=== PATIENT | male | born 1935 | race Two or more races ===

== ENCOUNTER 2020-10-30 09:55 | Outpatient (REF) | payer OTHER, SELFPAY ==
[2020-10-30 11:13] LABS: Alanine Aminotransferase 19 U/L (0-40); Albumin Level 3.7 g/dL (3.5-5.0); Alkaline Phosphatase 100 U/L (39-117); Anion Gap 11 (12-20); Aspartate Amino Transferase 24 U/L (5-37); Bilirubin Total 1.2 mg/dL (0.0-1.0); Blood Urea Nitrogen 18 mg/dL (9-16); Carbon Dioxide 34 mmol/L (22-29); Chloride 102 mmol/L (96-108); Cholesterol 98 mg/dL; Estimated Glomerular Filt Rate > 60; Glucose Fasting 106 mg/dL (60-99); HDL Cholesterol 34 mg/dL; LDL Cholesterol Calculated 52 mg/dl; Potassium 4.2 mmol/l (3.3-5.1); Sodium 143 mmol/L (135-145); Total Protein 6.7 g/dL (6.5-8.0); Triglycerides 64 mg/dL
[2020-10-30 11:14] LABS: B Type Natriuretic Peptide 308 pg/mL (<100)
[2020-10-30 11:32] LABS: PSA,Total (Free>4and<10) 0.56 ng/mL (0.00-4.00)
== END 2020-10-30 09:56 | disposition home or self-care (01) ==
LOC: HO.LAB 09:55
PROVIDERS: PCP Internal Medicine; Visit Provider Internal Medicine
DX: E11.9 Type 2 diabetes mellitus without complications (principal); M1A.9XX0 Chronic gout, unspecified, without tophus (tophi); I50.22 Chronic systolic (congestive) heart failure; N40.1 Benign prostatic hyperplasia with lower urinary tract symptoms; Z79.01 Long term (current) use of anticoagulants; Z12.5 Encounter for screening for malignant neoplasm of prostate
CPT/HCPCS: 36415; 80053; 80061; 83880; 84153

== ENCOUNTER → 2020-11-15 12:58 | Outpatient (BNVA) | payer SELFPAY | PROVIDERS: PCP Internal Medicine; Visit Provider Internal Medicine Endocrinology, Diabetes & Metabolism ==

== ENCOUNTER → 2020-12-18 15:02 | Outpatient (BNVA) | payer OTHER, SELFPAY | PROVIDERS: PCP Internal Medicine; Visit Provider Internal Medicine Cardiovascular Disease | DX: I50.22 Chronic systolic (congestive) heart failure (principal); I48.0 Paroxysmal atrial fibrillation; Z79.899 Other long term (current) drug therapy | CPT/HCPCS: 99212 ==

== ENCOUNTER 2021-03-05 08:24 | Outpatient (REF) | payer OTHER, MEDICAID, SELFPAY ==
[2021-03-05 10:15] LABS: Alanine Aminotransferase 22 U/L (0-40); Albumin Level 3.7 g/dL (3.5-5.0); Alkaline Phosphatase 103 U/L (39-117); Anion Gap 13 (12-20); Aspartate Amino Transferase 25 U/L (5-37); Bilirubin Total 1.3 mg/dL (0.0-1.0); Blood Urea Nitrogen 18 mg/dL (9-16); Calcium 9.2 mg/dL (8.4-10.2); Carbon Dioxide 30 mmol/L (22-29); Chloride 102 mmol/L (96-108); Estimated Glomerular Filt Rate > 60; Glucose Fasting 101 mg/dL (60-99); Potassium 4.1 mmol/L (3.3-5.1); Sodium 141 mmol/L (135-145); Total Protein 6.7 g/dL (6.5-8.0); Uric Acid 8.6 mg/dL (3.4-7.0)
[2021-03-05 10:21] LABS: B Type Natriuretic Peptide 259 pg/mL (<100)
[2021-03-05 10:46] LABS: PSA,Total (Free>4and<10) 0.59 ng/mL (0.00-4.00)
== END 2021-03-05 08:25 | disposition home or self-care (01) ==
LOC: HO.LAB 08:24
PROVIDERS: Absent Provider Internal Medicine Endocrinology, Diabetes & Metabolism; PCP Internal Medicine; Referring Provider Internal Medicine Cardiovascular Disease; Visit Provider Internal Medicine
DX: Z12.5 Encounter for screening for malignant neoplasm of prostate (principal); M10.9 Gout, unspecified; N40.0 Benign prostatic hyperplasia without lower urinary tract symptoms; I50.22 Chronic systolic (congestive) heart failure; E11.3553 Type 2 diabetes mellitus with stable proliferative diabetic retinopathy, bilateral
CPT/HCPCS: 36415; 80053; 83880; 84153; 84550

== ENCOUNTER 2021-08-22 13:04 | Outpatient (REF) | payer OTHER, MEDICAID, SELFPAY | END 2021-08-22 13:05 | disposition home or self-care (01) | LOC: HO.LAB 13:04 | PROVIDERS: PCP Internal Medicine; Visit Provider Internal Medicine | DX: Z20.822 Contact with and (suspected) exposure to COVID-19 (principal) | CPT/HCPCS: C9803; U0003; U0005 ==

== ENCOUNTER 2021-11-13 09:45 | Outpatient (REF) | payer OTHER, MEDICAID, SELFPAY ==
[2021-11-13 10:03] LABS: MANUAL DIFF FLAG NO
[2021-11-13 10:50] LABS: Basophils Absolute Auto 0.1 X10*3/uL (0.0-0.2); Basophils Percent Auto 0.8 % (0-2); Eosinophils Absolute Auto 0.5 X10*3/uL (0.0-0.4); Eosinophils Percent Auto 7.4 % (0-4); Hematocrit 41.2 % (42.0-52.0); Hemoglobin 13.4 g/dl (14.0-18.0); Imm Gran Abs Auto 0.02 X10*3/uL (0.00-0.03); Imm Gran Pct Auto 0.3 % (0.0-0.4); Lymphocytes Absolute Auto 2.4 X10*3/uL (1.2-4.9); Lymphocytes Percent Auto 33.1 % (20-40); Mean Corpuscular HGB Conc 32.5 g/dl (31.0-36.0); Mean Corpuscular Hemoglobin 30.8 pg (27.0-33.0); Mean Corpuscular Volume 94.7 fL (80.0-98.0); Mean Platelet Volume 12.1 fL (9.4-12.4); Monocytes Absolute Auto 0.5 X10*3/uL (0.1-1.2); Monocytes Percent Auto 7.1 % (2-11); Neutrophils Absolute Auto 3.7 x10*3/uL (2.0-8.3); Neutrophils Percent Auto 51.3 % (45-73); Platelet Count 149 X10*3/uL (160-400); Red Blood Count 4.35 X10*6/uL (4.60-5.80); Red Cell Distribution Width 12.9 % (11.0-16.0); White Blood Count 7.2 X10*3/uL (4.8-10.8)
[2021-11-13 11:37] LABS: Alanine Aminotransferase 15 U/L (0-40); Albumin Level 3.7 g/dL (3.5-5.0); Alkaline Phosphatase 89 U/L (39-117); Anion Gap 9 (12-20); Aspartate Amino Transferase 20 U/L (5-37); Bilirubin Total 1.2 mg/dL (0.0-1.0); Blood Urea Nitrogen 18 mg/dL (9-16); Calcium 9.3 mg/dL (8.4-10.2); Carbon Dioxide 33 mmol/L (22-29); Chloride 104 mmol/L (96-108); Cholesterol 103 mg/dL; Estimated Glomerular Filt Rate 59; Glucose Fasting 99 mg/dL (60-99); HDL Cholesterol 31 mg/dL; LDL Cholesterol Calculated 57 mg/dl; Potassium 4.4 mmol/L (3.3-5.1); Sodium 142 mmol/L (135-145); Total Protein 6.7 g/dL (6.5-8.0); Triglycerides 77 mg/dL
[2021-11-18 14:16] LABS: Vitamin D 25-OH, D2 <4 ng/mL; Vitamin D 25-OH, D3 53 ng/mL; Vitamin D 25-OH, Total 53 ng/mL (30-100)
== END 2021-11-13 09:46 | disposition home or self-care (01) ==
LOC: HO.LAB 09:45
PROVIDERS: PCP Internal Medicine; Visit Provider Internal Medicine
DX: D64.9 Anemia, unspecified (principal); E66.9 Obesity, unspecified; E78.5 Hyperlipidemia, unspecified; E55.9 Vitamin D deficiency, unspecified; E11.9 Type 2 diabetes mellitus without complications
CPT/HCPCS: 36415; 80053; 80061; 82043; 82306; 85025

== ENCOUNTER 2021-12-23 15:00 | Outpatient (REF) | payer OTHER, MEDICAID, SELFPAY ==
[2021-12-23 16:04] LABS: MANUAL DIFF FLAG NO
[2021-12-23 16:24] LABS: Basophils Percent Auto 0.5 % (0-2); Eosinophils Absolute Auto 0.5 X10*3/uL (0.0-0.4); Eosinophils Percent Auto 6.4 % (0-4); Hematocrit 42.8 % (42.0-52.0); Hemoglobin 13.4 g/dl (14.0-18.0); Imm Gran Abs Auto 0.02 X10*3/uL (0.00-0.03); Imm Gran Pct Auto 0.3 % (0.0-0.4); Lymphocytes Absolute Auto 2.2 X10*3/uL (1.2-4.9); Lymphocytes Percent Auto 27.6 % (20-40); Mean Corpuscular HGB Conc 31.3 g/dl (31.0-36.0); Mean Corpuscular Hemoglobin 29.8 pg (27.0-33.0); Mean Corpuscular Volume 95.1 fL (80.0-98.0); Mean Platelet Volume 11.8 fL (9.4-12.4); Monocytes Absolute Auto 0.5 X10*3/uL (0.1-1.2); Monocytes Percent Auto 6.7 % (2-11); Neutrophils Absolute Auto 4.6 x10*3/uL (2.0-8.3); Neutrophils Percent Auto 58.5 % (45-73); Platelet Count 161 X10*3/uL (160-400); Red Cell Distribution Width 12.8 % (11.0-16.0); White Blood Count 7.8 X10*3/uL (4.8-10.8)
[2021-12-23 16:50] LABS: Anion Gap 11 (12-20); Blood Urea Nitrogen 19 mg/dL (9-16); Calcium 9.2 mg/dL (8.4-10.2); Carbon Dioxide 35 mmol/L (22-29); Chloride 103 mmol/L (96-108); Estimated Glomerular Filt Rate 56; Glucose Random 98 mg/dL (60-115); Potassium 4.2 mmol/L (3.3-5.1); Sodium 145 mmol/L (135-145); Uric Acid 8.9 mg/dL (3.4-7.0)
[2021-12-23 16:57] LABS: B Type Natriuretic Peptide 284 pg/mL (<100)
[2021-12-27 13:46] LABS: Vitamin D 25-OH, D2 <4 ng/mL; Vitamin D 25-OH, D3 44 ng/mL; Vitamin D 25-OH, Total 44 ng/mL (30-100)
== END 2021-12-23 15:01 | disposition home or self-care (01) ==
LOC: HO.LAB 15:00
PROVIDERS: PCP Internal Medicine; Referring Provider Internal Medicine; Visit Provider Internal Medicine Cardiovascular Disease
DX: I50.22 Chronic systolic (congestive) heart failure (principal); I48.0 Paroxysmal atrial fibrillation; E55.9 Vitamin D deficiency, unspecified; D64.9 Anemia, unspecified; M10.9 Gout, unspecified
CPT/HCPCS: 36415; 80048; 82306; 83880; 84550; 85025; 93005; 99212

== ENCOUNTER → 2022-03-13 14:47 | Outpatient (REF) | payer OTHER, MEDICAID, SELFPAY ==
--- NOTE | 2022-03-13 14:52 | CA_ITS ---
Transthoracic Echocardiogram Patient (Last, First, Middle): Walt Allen R Gender: Male Date of : 1935 Age: 87 Procedure Date: 03/13/2022 Procedure Type: Transthoracic Echocardiogram Location: OP Height: 172.72 cm Weight: 105.69 kg BSA: 2.18 m2 Heart Rate: 60 bpm BP: 132 / 76 mmHg Cartography Teacher: NAVID Referring MD: Robbie Kemp MD Lawnmower Mechanic: Robbie Kemp MD Symptoms: I50.22 - Chronic systolic (congestive) heart failure Study Quality: Fair ECG Rhythm: Atrial Fibrillation Conclusions: - 1. Normal LV systolic function 2. Moderate right atrial enlargement 3. Normal cardiac valvular Doppler 4. Normal RV systolic pressure 5. No gross pericardial effusion Findings Left Ventricle Normal left ventricular size, thickness, and systolic function. The visually estimated ejection fraction is between 55-60%. Diastolic function is normal for age. Right Ventricle Mildly increased right ventricular cavity size. Atria The left atrium is likely dilated. Interatrial shunt cannot be excluded. The right atrium is moderately dilated. Aortic Valve There is mild calcification of the aortic valve. There is no aortic valve stenosis. There is no aortic valve regurgitation. Mitral Valve Likely normal mitral valve structure and function. There is trace mitral valve regurgitation. There is no mitral valve stenosis. Pulmonic Valve The pulmonic valve was not well visualized. Tricuspid Valve Likely normal tricuspid valve structure and function. There is mild tricuspid valve regurgitation. Normal right atrial pressure. There is no evidence of pulmonary hypertension. Great Vessels All visible segments of the aorta are normal in size. The pulmonary artery was not well visualized. Venous The inferior vena cava is normal in size and collapses greater than 50% with inspiration. Pericardium/Pleural There is no evidence of pericardial effusion. Prior Study Comparison No significant change compared to prior study dated: 05/11/2019. Measurements 2D Linear Measurements IVSd: 1.05 0.6-0.9/0.6-1.0 cm LVIDd: 5.00 3.9-5.3/4.2-5.9 cm LVIDd Index: 2.29 2.4-3.2/2.2-3.1 cm/m2 LVIDs: 3.67 2.0-3.6 cm LVPWd: 0.72 0.7-1.1 cm LA Diam: 4.40 2.7-3.8/3.0-4.0 cm LAIDs Index: 2.02 1.5-2.3 cm/m2 LV Mass: 192.70 67-162/88-224 g LV Mass Index: 88.39 43-95/49-115 g/m2 LVOT Diam: 2.20 3.0+(-)1.3 cm Mitral Valve MV Pk E: 0.70 Aortic Valve AoV Pk Jeff: 0.78 AoV Mn Jeff: 0.55 AoV VTI: 0.16 AoV Pk Grad: 2.00 Aov Mn Grad: 1.00 MARY Cont.VTI: 3.14 LVOT LVOT Pk Jeff: 0.63 LVOT Mn Jeff: 0.44 LVOT VTI: 0.13 LVOT Pk Grad: 2.00 LVOT Mn Grad: 1.00 LVOT Diam: 2.20 LVOT Area: 3.80 Diastolic Function MV Pk E: 0.70 Tricuspid Valve TR Pk Jeff: 2.38 TR Pk Grad: 23.00 RA Press: 15.00 RVSP: 38.00 Great Vessels Aorta Sinus of Valsalva: 2.86 2.0-3.[address] [place]: 2.71 1.7-3.4 cm Ao Asc: 3.10 2.1-3.4 cm Pulmonary Valve PV Pk Jeff: 0.62 Peak PV Grad: 2.00 Updated in Other Vendor System with Status of Final Robbie Kemp MD electronically signed on 03/14/2022 3:02:09 PM with status of Final
== END ==
LOC: HO.CARD 14:47
PROVIDERS: PCP Internal Medicine; Visit Provider Internal Medicine Cardiovascular Disease
DX: I50.22 Chronic systolic (congestive) heart failure (principal)
CPT/HCPCS: 93306

== ENCOUNTER → 2022-03-27 14:32 | Outpatient (BNVA) | payer OTHER, MEDICAID, SELFPAY | PROVIDERS: PCP Internal Medicine; Referring Provider Internal Medicine; Visit Provider Internal Medicine Cardiovascular Disease | DX: I50.22 Chronic systolic (congestive) heart failure (principal); I48.0 Paroxysmal atrial fibrillation; Z79.01 Long term (current) use of anticoagulants; Z79.899 Other long term (current) drug therapy | CPT/HCPCS: 99212 ==

== ENCOUNTER 2022-04-01 08:57 | Outpatient (REF) | payer OTHER, MEDICAID, SELFPAY ==
[2022-04-01 10:44] LABS: B Type Natriuretic Peptide 252 pg/mL (<100)
[2022-04-01 10:49] LABS: Creatinine Urine 167.48 mg/dL; Microalbum/Creatinine Ratio Ur 8.3 ug/mg cr
[2022-04-01 11:06] LABS: Alanine Aminotransferase 18 U/L (0-40); Albumin Level 3.7 g/dL (3.5-5.0); Alkaline Phosphatase 96 U/L (39-117); Anion Gap 11 (12-20); Aspartate Amino Transferase 21 U/L (5-37); Bilirubin Total 1.3 mg/dL (0.0-1.0); Blood Urea Nitrogen 20 mg/dL (9-16); Calcium 8.9 mg/dL (8.4-10.2); Carbon Dioxide 30 mmol/L (22-29); Chloride 105 mmol/L (96-108); Cholesterol 96 mg/dL; Estimated Glomerular Filt Rate 57; Glucose Fasting 99 mg/dL (60-99); HDL Cholesterol 33 mg/dL; LDL Cholesterol Calculated 52 mg/dl; Potassium 4.3 mmol/L (3.3-5.1); Sodium 142 mmol/L (135-145); Total Protein 6.7 g/dL (6.5-8.0); Triglycerides 58 mg/dL
== END 2022-04-01 08:58 | disposition home or self-care (01) ==
LOC: HO.LAB 08:57
PROVIDERS: PCP Internal Medicine; Visit Provider Internal Medicine
DX: I50.22 Chronic systolic (congestive) heart failure (principal); E78.5 Hyperlipidemia, unspecified; E11.9 Type 2 diabetes mellitus without complications
CPT/HCPCS: 36415; 80053; 80061; 82043; 83880

== ENCOUNTER 2022-08-05 09:00 | Outpatient (REF) | payer OTHER, MEDICAID, SELFPAY ==
[2022-08-05 09:48] LABS: Cholesterol 103 mg/dL; HDL Cholesterol 34 mg/dL; LDL Cholesterol Calculated 54 mg/dl; Triglycerides 76 mg/dL
[2022-08-05 09:57] LABS: Creatinine Urine 197.11 mg/dL; Microalbum/Creatinine Ratio Ur 10.1 ug/mg cr
[2022-08-05 10:09] LABS: Vitamin D 25-OH Total 55.3 ng/mL (>30)
[2022-08-06 12:14] LABS: NT-proBNP 959 pg/mL
== END 2022-08-05 09:01 | disposition home or self-care (01) ==
LOC: HO.LAB 09:00
PROVIDERS: PCP Internal Medicine; Visit Provider Internal Medicine
DX: I50.22 Chronic systolic (congestive) heart failure (principal); E78.5 Hyperlipidemia, unspecified; E11.9 Type 2 diabetes mellitus without complications; E55.9 Vitamin D deficiency, unspecified
CPT/HCPCS: 36415; 80061; 82043; 82306; 83880

== ENCOUNTER 2022-08-28 12:13 | Emergency (ER) | payer OTHER, MEDICAID, SELFPAY ==
--- NOTE | ~2022-08-28 | US_ITS ---
EXAMINATION: US SCROTUM CLINICAL INFORMATION: Bilateral testicular pain and swelling. COMPARISON: None TECHNIQUE: A sonogram of the scrotum was performed assessing delgado-scale appearance and color Doppler flow. Spectral Doppler analysis of the arterial and venous flow were performed in the testes bilaterally. FINDINGS: RIGHT: Right testicle measures 4.5 x 2.7 x 2.6 cm, volume 16.2 mL. No focal testicular parenchymal lesions are visualized except for 2 punctate calcifications. Spectral Doppler analysis of the arterial and venous flow is normal in the right testis. Right epididymis is not visualized due to large hydrocele. There is moderate right hydrocele with echogenic floating debris. There is no varicocele seen. LEFT: Left testicle measures 4.9 x 2.4 x 2.3 cm, volume 14.2 mL. No focal testicular parenchymal lesions are visualized. Spectral Doppler analysis of the arterial and venous flow is normal in the left testis. Left epididymis is not utilized due to large hydrocele there is a large left hydrocele with a small echogenic scrotal pole measuring 0.3 x 0.4 x 0.4 cm. There is no scrotal wall thickening. US/US scrotum IMPRESSION: Bilateral large hydroceles with echogenic floating debris in the right hydrocele. 2 punctate calcifications in the right testes but otherwise both testes are unremarkable with normal vascular flow. Incidental finding of a left scrotal christian. Bilateral epididymides nonvisualized likely due to large hydroceles.
--- NOTE | ~2022-08-28 | US_ITS ---
EXAMINATION: US SCROTUM CLINICAL INFORMATION: Bilateral testicular pain and swelling. COMPARISON: None TECHNIQUE: A sonogram of the scrotum was performed assessing delgado-scale appearance and color Doppler flow. Spectral Doppler analysis of the arterial and venous flow were performed in the testes bilaterally. FINDINGS: RIGHT: Right testicle measures 4.5 x 2.7 x 2.6 cm, volume 16.2 mL. No focal testicular parenchymal lesions are visualized except for 2 punctate calcifications. Spectral Doppler analysis of the arterial and venous flow is normal in the right testis. Right epididymis is not visualized due to large hydrocele. There is moderate right hydrocele with echogenic floating debris. There is no varicocele seen. LEFT: Left testicle measures 4.9 x 2.4 x 2.3 cm, volume 14.2 mL. No focal testicular parenchymal lesions are visualized. Spectral Doppler analysis of the arterial and venous flow is normal in the left testis. Left epididymis is not utilized due to large hydrocele there is a large left hydrocele with a small echogenic scrotal pole measuring 0.3 x 0.4 x 0.4 cm. There is no scrotal wall thickening. US/US scrotum doppler IMPRESSION: Bilateral large hydroceles with echogenic floating debris in the right hydrocele. 2 punctate calcifications in the right testes but otherwise both testes are unremarkable with normal vascular flow. Incidental finding of a left scrotal christian. Bilateral epididymides nonvisualized likely due to large hydroceles.
[2022-08-28 12:32] VITALS: BP 128/54; PULSE 84; RESP 18; TEMP 36.9; O2SAT 98; BMI 37.5
--- NOTE | 2022-08-28 12:36 | ED.GENADULT ---
HPI - General Adult General Chief complaint: General Medical Stated complaint: testicle issue Time Seen by Provider: 08/28/22 16:21 Related Data Home Medications Medication Instructions Recorded Confirmed lancets 31 gauge #100 ea 11/01/20 08/05/22 furosemide 40 mg tablet 80 mg PO DAILY 03/27/22 08/05/22 Previous Rx's Medication Instructions Recorded blood-glucose meter (OneTouch #1 ea 11/28/20 Ultra2 Meter) potassium chloride 10 mEq 10 meq PO DAILY 90 days #90 tabs 09/27/21 tablet,extended release alcohol swabs 1 pad topical .once a day 100 days 11/20/21 #100 ea blood sugar diagnostic #100 ea 11/20/21 lancets (OneTouch UltraSoft #100 ea 11/20/21 Lancets) diabetic shoe inserts #1 ea 04/01/22 diabetic shoes #1 ea 04/01/22 colchicine 0.6 mg tablet 0.6 mg PO BID PRN pain #60 caps 04/21/22 rivaroxaban 20 mg tablet (Xarelto) 20 mg PO DAILY #90 caps 05/20/22 terazosin 10 mg capsule 10 mg PO DAILY #90 caps 05/20/22 sitagliptin 50 mg tablet (Januvia) 50 mg PO DAILY #30 tabs 05/27/22 cefdinir 300 mg capsule 300 mg PO BID 7 days #14 caps 06/21/22 metoprolol tartrate 100 mg tablet 100 mg PO BID #60 caps 07/18/22 ProAir HFA 90 mcg/actuation 2 puff inhalation Q6H PRN 08/05/22 aerosol inhaler (albuterol sulfate) shortness of breath or wheezing 30 days #8.5 grams fluticasone propionate 50 1 spray intranasal DAILY 30 days 08/05/22 mcg/actuation nasal #16 grams spray,suspension metformin 500 mg tablet,extended 500 mg PO BID 90 days #180 tabs 08/14/22 release 24 hr Allergies Allergy/AdvReac Type Severity Reaction Status Date / Time fluticasone [From Flonase] Allergy Intermediate Inadequate Verified 08/05/22 14:45 response linagliptin [Tradjenta] Allergy Intermediate anaphylaxis Verified 08/05/22 14:45 oxycodone Allergy Intermediate itch/irrita Verified 08/05/22 14:45 tion warfarin [Coumadin] Allergy Intermediate hemarthrosi Verified 08/05/22 14:45 s ipartropium bromide nasal Allergy Intermediate allergic Uncoded 08/05/22 14:45 spra conjunctivitis PMFSH Past Medical History Medical History Atrial fibrillation BPH (benign prostatic hyperplasia) CHF (congestive heart failure) Current use of [facility] anticoagulation Diabetes mellitus Diabetic polyneuropathy associated with type 2 diabetes mellitus Foot pain Gout Hearing loss 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 Mother No problems noted. Father Medical history unknown Mother No problems noted. Brother Asthma Sister Leukemia Diabetes Social History Social History Housing: Apartment Alcohol intake: never Patient Tobacco Use Status: Never used Tobacco e-Cigarette/Vaping Use: Never Used Second Hand Smoke Exposure: No Advance Directives: No Advance Directives Information Provided: Yes service: No Current occupational status: retired Cognitive needs: Yes Hearing needs: No Vision needs: Yes Physical Exam ED Vital Signs: Vital Signs - 24 hr 08/28/22 12:32 Temperature 98.5 F Pulse Rate 84 Respiratory Rate 18 Blood Pressure 128/54 L Pulse Oximetry 98 Oxygen Delivery Method Room Air BMI result Body Mass Index 37.5 Course Course Course Narrative: RME--87-year-old male [place]an-speaking with a past medical history BPH, AFib, CHF, diabetes presenting to the ED complaining of bilateral testicular pain /swelling x 10 years, worsened last night. Admits to similar symptoms in the past. Denies known trauma, dysuria/hematuria, flank pain UA and scrotal ultrasound ordered in triage Medical Decision Making Lab Data Labs: Lab Results 08/28/22 Range/Units 17:02 Urine Color Yellow Urine Appearance Clear Urine pH 7.0 (5.0-9.0) Ur Specific [place] 1.015 (1.005-1.025) Urine Protein Negative (Neg-Trace) mg/dL Urine Glucose (UA) Negative (Negative) mg/dL Urine Ketones Negative (Negative) mg/dL Urine Blood Negative (Negative) Urine Nitrite Negative (Negative) Ur Leukocyte Esterase Negative (Negative) Discharge Plan Discharge Clinical Impression: Swelling of testicle, Pain in both testicles, Hydrocele Patient Disposition: Home, Self-Care Instructions: Testicle Pain (ED), Scrotal Pain (ED) Additional Instructions: Take your medications as prescribed. If you were prescribed antibiotics today, it is important that you take your medication to their entirety, do not skip any doses, do not finish them early. Follow-up with your primary care provider this week. Follow up with urology as soon as possible call to schedule an appointment tomorrow. Return to the emergency department with new or worsening symptoms. Change in quality of pain, discoloration, fevers, chills, nausea, vomiting, worsening pain, penile discharge In case of emergency call 911 Elevate the scrotum when possible. You can take ibuprofen every 6 hours tylenol every 4 hours as needed for pain or discomfort. US/US scrotum FINDINGS: RIGHT: Right testicle measures 4.5 x 2.7 x 2.6 cm, volume 16.2 mL. No focal testicular parenchymal lesions are visualized except for 2 punctate calcifications. Spectral Doppler analysis of the arterial and venous flow is normal in the right testis. Right epididymis is not visualized due to large hydrocele. There is moderate right hydrocele with echogenic floating debris. There is no varicocele seen. LEFT: Left testicle measures 4.9 x 2.4 x 2.3 cm, volume 14.2 mL. No focal testicular parenchymal lesions are visualized. Spectral Doppler analysis of the arterial and venous flow is normal in the left testis. Left epididymis is not utilized due to large hydrocele there is a large left hydrocele with a small echogenic scrotal pole measuring 0.3 x 0.4 x 0.4 cm. There is no scrotal wall thickening. IMPRESSION: Bilateral large hydroceles with echogenic floating debris in the right hydrocele. ? 2 punctate calcifications in the right testes but otherwise both testes are unremarkable with normal vascular flow. ? Incidental finding of a left scrotal christian. ? Bilateral epididymides nonvisualized likely due to large hydroceles. Prescriptions: No Action (DME) blood-glucose meter [OneTouch Ultra2 Meter] [facility] [place] Rx Instructions .ROUTE .MEDSUPPLY Qty: 1 0RF Rx Instructions: As directed potassium chloride 10 mEq tablet extended release 10 meq PO DAILY 90 Days Qty: 90 3RF colchicine 0.6 mg tablet 0.6 mg PO BID PRN (Reason: pain) Qty: 60 4RF terazosin 10 mg capsule 10 mg PO DAILY Qty: 90 2RF Xarelto 20 mg tablet 20 mg PO DAILY Qty: 90 1RF Januvia 50 mg tablet 50 mg PO DAILY Qty: 30 6RF metoprolol tartrate 100 mg tablet 100 mg PO BID Qty: 60 6RF metformin 500 mg tablet extended release 24 hr 500 mg PO BID 90 Days Qty: 180 2RF flu vacc [id number] 6mos up(PF) 60 mcg (15 mcg x 4)/0.5 mL syringe 0.5 ml IM ONCE Qty: 0.5 0RF (DME) Ultra Thin [place] 31 [place] [facility] [place] Rx Instructions .ROUTE .MEDSUPPLY Qty: 100 Rx Instructions: As directed (DME) OneTouch Ultra Blue Test Strip Strip See Rx Instructions .ROUTE .MEDSUPPLY Qty: 100 2RF Rx Instructions: Use 1 test strip once a day (DME) lancets [OneTouch UltraSoft Lancets] [facility] [place] See Rx Instructions .ROUTE .MEDSUPPLY Qty: 100 2RF Rx Instructions: Use 1 lancet once a day alcohol swabs Pads, Medicated 1 pad topical .once a day 100 Days Qty: 100 2RF (DME) diabetic shoes 12 W See Rx Instructions .Route .MEDSUPPLY Qty: 1 1RF Rx Instructions: As directed (DME) diabetic shoe inserts 3 pairs See Rx Instructions .Route .MEDSUPPLY Qty: 1 6RF Rx Instructions: As directed albuterol sulfate [ProAir HFA] 90 mcg/actuation HFA aerosol inhaler 2 puff inhalation Q6H PRN (Reason: shortness of breath or wheezing) 30 Days Qty: 8.5 1RF fluticasone propionate 50 mcg/actuation spray,suspension 1 spray intranasal DAILY 30 Days Qty: 16 1RF cefdinir 300 mg capsule 300 mg PO BID 7 Days Qty: 14 0RF furosemide 40 mg tablet 80 mg PO DAILY Referrals: [facility] [place] [facility] [Provider Group] - 1 day Pushpa Mallory MD [Primary Care Provider] - 2 days Interventions: ED Discharge Assessment Last Done: 08/28/22 17:46 Discharge Date/Time: 08/28/22 17:46
--- NOTE | 2022-08-28 16:32 | ED_ITS ---
HPI - General Adult General Chief complaint: General Medical Stated complaint: testicle issue Time Seen by Provider: 08/28/22 16:21 Source: patient Mode of arrival: ambulatory Limitations: no limitations History of Present Illness HPI narrative: 87-year-old male past medical history significant for atrial fibrillation on rivaroxaban, depression, diabetes, CHF, presenting to the emergency department with complaints of testicular discomfort x1 week and testicular swelling times 10 years. Patient reports that recently he has noted a dull aching pain in bilateral testicles, worse at night. He tells me that this is never happened to him before. He reports that he was told once that he had a small cyst in his testicle however he was not sure which side. He tells me his scrotum has been appearing larger and larger over the course of the past few months. Vague complaints of dysuria. Denies urinary frequency, urgency, chest pain, shortness of breath, fevers, chills, back pain, weakness, headache, vision changes. Currently not followed by urology. Related Data Home Medications Medication Instructions Recorded Confirmed lancets 31 gauge #100 ea 11/01/20 08/05/22 furosemide 40 mg tablet 80 mg PO DAILY 03/27/22 08/05/22 Previous Rx's Medication Instructions Recorded blood-glucose meter (OneTouch #1 ea 11/28/20 Ultra2 Meter) potassium chloride 10 mEq 10 meq PO DAILY 90 days #90 tabs 09/27/21 tablet,extended release alcohol swabs 1 pad topical .once a day 100 days 11/20/21 #100 ea blood sugar diagnostic #100 ea 11/20/21 lancets (OneTouch UltraSoft #100 ea 11/20/21 Lancets) diabetic shoe inserts #1 ea 04/01/22 diabetic shoes #1 ea 04/01/22 colchicine 0.6 mg tablet 0.6 mg PO BID PRN pain #60 caps 04/21/22 rivaroxaban 20 mg tablet (Xarelto) 20 mg PO DAILY #90 caps 05/20/22 terazosin 10 mg capsule 10 mg PO DAILY #90 caps 05/20/22 sitagliptin 50 mg tablet (Januvia) 50 mg PO DAILY #30 tabs 05/27/22 cefdinir 300 mg capsule 300 mg PO BID 7 days #14 caps 06/21/22 metoprolol tartrate 100 mg tablet 100 mg PO BID #60 caps 07/18/22 ProAir HFA 90 mcg/actuation 2 puff inhalation Q6H PRN 08/05/22 aerosol inhaler (albuterol sulfate) shortness of breath or wheezing 30 days #8.5 grams fluticasone propionate 50 1 spray intranasal DAILY 30 days 08/05/22 mcg/actuation nasal #16 grams spray,suspension metformin 500 mg tablet,extended 500 mg PO BID 90 days #180 tabs 08/14/22 release 24 hr Allergies Allergy/AdvReac Type Severity Reaction Status Date / Time fluticasone [From Flonase] Allergy Intermediate Inadequate Verified 08/05/22 14:45 response linagliptin [Tradjenta] Allergy Intermediate anaphylaxis Verified 08/05/22 14:45 oxycodone Allergy Intermediate itch/irrita Verified 08/05/22 14:45 tion warfarin [Coumadin] Allergy Intermediate hemarthrosi Verified 08/05/22 14:45 s ipartropium bromide nasal Allergy Intermediate allergic Uncoded 08/05/22 14:45 spra conjunctivitis Review of Systems Review of Systems: Constitutional : No Weight loss, No Fever, No Chills, No Fatigue, No Malaise ENT/Mouth : No sore throat, No Rhinorrhea Eyes: No Eye Pain, No Swelling, No Redness Cardiovascular : No Chest Pain, No SOB, No Dyspnea on Exertion, No Orthopnea, No Edema, No Palpitations Respiratory : No Cough, No Sputum, No Wheezing Gastrointestinal : No Nausea, No Vomiting, No Diarrhea, No Constipation, No abdominal Pain, No Hematochezia, No Melena Genitourinary : No Dysuria, No Urinary Frequency, No Hematuria, + scrotal pain & swelling Musculoskeletal : No joint pain, No Myalgias, No Joint Swelling Skin : No Skin Lesions, No rash Neuro : No Weakness, No Numbness, No Dizziness, No Headache Psych : No Anxiety/Panic, No Depression All other systems reviewed and are negative Yes all other systems are reviewed and are negative REPLACED BY [facility] Past Medical History Attestation statement: The following information was validated with the patient. 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 Mother No problems noted. Father Medical history unknown Mother No problems noted. Brother Asthma Sister Leukemia Diabetes Social History Social History Housing: Apartment Alcohol intake: never Patient Tobacco Use Status: Never used Tobacco e-Cigarette/Vaping Use: Never Used Second Hand Smoke Exposure: No Advance Directives: No Advance Directives Information Provided: Yes service: No Current occupational status: retired Cognitive needs: Yes Hearing needs: No Vision needs: Yes Physical Exam ED Vital Signs: Vital Signs - 24 hr 08/28/22 12:32 Temperature 98.5 F Pulse Rate 84 Respiratory Rate 18 Blood Pressure 128/54 L Pulse Oximetry 98 Oxygen Delivery Method Room Air BMI result Body Mass Index 37.5 vss Appearance: Alert.? Oriented X3.? No acute distress.? Head: Normocephalic, atraumatic, no step-offs or deformities Eyes: Pupils equal, round and reactive to light.? Neck: Normal inspection.? Neck supple.? CVS: Normal heart rate and rhythm.? Pulses normal.? Respiratory: No respiratory distress.? Breath sounds normal.? Abdomen: Soft and nontender.? Skin: Skin warm and dry.? Normal skin color.? Normal skin turgor.? Sensative exam: slight tenderness to palpation b/l, swollen testicles b/l. No lesions lumps or masses. No penile dc. No discoloration. Normal external male genitalia. No erythema or calor Extremities: No lower extremity edema.? No calf ttp. 5/5 strength to bilateral upper and lower extremities Neuro: Oriented X 3.? No motor deficit.? No sensory deficit. CN 2-12 intact Course Reevaluation(s) Reevaluation #1: Bilateral large hydroceles with echogenic fluid and debris in the right hydrocele. Small punctate calcifications in the right testes that otherwise testes are unremarkable with normal vascular flow therefore there for unlikely to testicular torsion. Patient's symptoms most likely from progressive swelling of of hydroceles, we will have him follow-up with urology. Urine pending Time: 16:54 Reevaluation #2: . Urine unremarkable. Plan is to discharge patient home with prompt PCP follow-up, as well as follow-up with Urology. We educated on worrisome signs insist symptoms and when to return to the emergency department and they were outlined on his discharge papers. Patient verbalized his understanding is comfortable with the discharge plan. Comfortable discharge. Time: 17:33 Medical Decision Making MDM Narrative Medical decision making narrative: 1635 87 year old male presents w/ testicular pain X a week and swelling X 10 years also some associated dysuria. No nausea, vomiting, trauma. PE significant for slight tenderness to palpation b/l, swollen testicles b/l. No lesions lumps or masses. No penile dc. No discoloration. Normal external male genitalia. No erythema or calor Likely hydrocele, or balanitits. Unlikley fourniers gangrene, torsion. Will rule out UTI. Plan- urine, US Medical Records Medical records reviewed: Yes I reviewed the patient's medical records. Lab Data Lab results reviewed: Yes I reviewed the patient's lab results. Labs: Lab Results 08/28/22 Range/Units 17:02 Urine Color Yellow Urine Appearance Clear Urine pH 7.0 (5.0-9.0) Ur Specific [place] 1.015 (1.005-1.025) Urine Protein Negative (Neg-Trace) mg/dL Urine Glucose (UA) Negative (Negative) mg/dL Urine Ketones Negative (Negative) mg/dL Urine Blood Negative (Negative) Urine Nitrite Negative (Negative) Ur Leukocyte Esterase Negative (Negative) Critical Care Time Critical Care Time Critical Care Time: No Discharge Plan Discharge Clinical Impression: Swelling of testicle, Pain in both testicles, Hydrocele Patient Disposition: Home, Self-Care Instructions: Testicle Pain (ED), Scrotal Pain (ED) Additional Instructions: Take your medications as prescribed. If you were prescribed antibiotics today, it is important that you take your medication to their entirety, do not skip any doses, do not finish them early. Follow-up with your primary care provider this week. Follow up with urology as soon as possible call to schedule an appointment tomorrow. Return to the emergency department with new or worsening symptoms. Change in quality of pain, discoloration, fevers, chills, nausea, vomiting, worsening pain, penile discharge In case of emergency call 911 Elevate the scrotum when possible. You can take ibuprofen every 6 hours tylenol every 4 hours as needed for pain or discomfort. US/US scrotum FINDINGS: RIGHT: Right testicle measures 4.5 x 2.7 x 2.6 cm, volume 16.2 mL. No focal testicular parenchymal lesions are visualized except for 2 punctate calcifications. Spectral Doppler analysis of the arterial and venous flow is normal in the right testis. Right epididymis is not visualized due to large hydrocele. There is moderate right hydrocele with echogenic floating debris. There is no varicocele seen. LEFT: Left testicle measures 4.9 x 2.4 x 2.3 cm, volume 14.2 mL. No focal testicular parenchymal lesions are visualized. Spectral Doppler analysis of the arterial and venous flow is normal in the left testis. Left epididymis is not utilized due to large hydrocele there is a large left hydrocele with a small echogenic scrotal pole measuring 0.3 x 0.4 x 0.4 cm. There is no scrotal wall thickening. IMPRESSION: Bilateral large hydroceles with echogenic floating debris in the right hydrocele. ? 2 punctate calcifications in the right testes but otherwise both testes are unremarkable with normal vascular flow. ? Incidental finding of a left scrotal christian. ? Bilateral epididymides nonvisualized likely due to large hydroceles. Prescriptions: No Action (DME) blood-glucose meter [OneTouch Ultra2 Meter] Misc See Rx Instructions .ROUTE .MEDSUPPLY Qty: 1 0RF Rx Instructions: As directed potassium chloride 10 mEq tablet extended release 10 meq PO DAILY 90 Days Qty: 90 3RF colchicine 0.6 mg tablet 0.6 mg PO BID PRN (Reason: pain) Qty: 60 4RF terazosin 10 mg capsule 10 mg PO DAILY Qty: 90 2RF Xarelto 20 mg tablet 20 mg PO DAILY Qty: 90 1RF Januvia 50 mg tablet 50 mg PO DAILY Qty: 30 6RF metoprolol tartrate 100 mg tablet 100 mg PO BID Qty: 60 6RF metformin 500 mg tablet extended release 24 hr 500 mg PO BID 90 Days Qty: 180 2RF flu vacc [id number] 6mos up(PF) 60 mcg (15 mcg x 4)/0.5 mL syringe 0.5 ml IM ONCE Qty: 0.5 0RF (DME) Ultra Thin Lancets 31 gauge misc See Rx Instructions .ROUTE .MEDSUPPLY Qty: 100 Rx Instructions: As directed (DME) OneTouch Ultra Blue Test Strip Strip See Rx Instructions .ROUTE .MEDSUPPLY Qty: 100 2RF Rx Instructions: Use 1 test strip once a day (DME) lancets [OneTouch UltraSoft Lancets] Misc See Rx Instructions .ROUTE .MEDSUPPLY Qty: 100 2RF Rx Instructions: Use 1 lancet once a day alcohol swabs Pads, Medicated 1 pad topical .once a day 100 Days Qty: 100 2RF (DME) diabetic shoes 12 W See Rx Instructions .Route .MEDSUPPLY Qty: 1 1RF Rx Instructions: As directed (DME) diabetic shoe inserts 3 pairs See Rx Instructions .Route .MEDSUPPLY Qty: 1 6RF Rx Instructions: As directed albuterol sulfate [ProAir HFA] 90 mcg/actuation HFA aerosol inhaler 2 puff inhalation Q6H PRN (Reason: shortness of breath or wheezing) 30 Days Qty: 8.5 1RF fluticasone propionate 50 mcg/actuation spray,suspension 1 spray intranasal DAILY 30 Days Qty: 16 1RF cefdinir 300 mg capsule 300 mg PO BID 7 Days Qty: 14 0RF furosemide 40 mg tablet 80 mg PO DAILY Referrals: [facility] [place] [facility] [place]Provider Group] - 1 day Pushpa Mallory MD [Primary Care Provider] - 2 days
[2022-08-28 17:13] LABS: Appearance Urine Clear; Color Urine Yellow; Glucose Urine UA Negative (Negative); Leukocyte Esterase Urine Negative (Negative); Nitrite Urine Negative (Negative); Specific Gravity - Urine 1.015 (1.005-1.025); Urine Blood Negative (Negative); Urine Ketones Negative (Negative); Urine Protein Negative (Neg-Trace)
== END 2022-08-28 17:46 | disposition home or self-care (01) ==
PROVIDERS: Emergency Provider Emergency Medicine; PCP Internal Medicine
DX: N50.811 Right testicular pain (principal); N43.3 Hydrocele, unspecified; R10.2 Pelvic and perineal pain; Z79.899 Other long term (current) drug therapy
CPT/HCPCS: 76870; 81003; 93975; 99282; 99284

== ENCOUNTER → 2022-09-03 13:40 | Outpatient (BNVA) | payer OTHER, MEDICAID, SELFPAY | PROVIDERS: PCP Internal Medicine; Visit Provider Urology | DX: N43.3 Hydrocele, unspecified (principal); N45.2 Orchitis | CPT/HCPCS: 99202 ==

== ENCOUNTER 2022-09-08 10:53 | Outpatient (REF) | payer OTHER, MEDICAID, SELFPAY ==
[2022-09-08 12:45] LABS: Appearance Urine Clear; Color Urine Yellow; Glucose Urine UA Negative (Negative); Leukocyte Esterase Urine Negative (Negative); Nitrite Urine Negative (Negative); PH 7.5 (5.0-9.0); Urine Blood Negative (Negative); Urine Ketones Negative (Negative); Urine Protein Negative (Neg-Trace)
[2022-09-08 12:48] LABS: Bacteria Urine None Seen (None Seen); Hyaline Casts Urine 0-2 /LPF (0-2); RBC Urine 0-2 /HPF (0-2); Squamous Epithelial Cell Urine 0-2 /HPF (0-2); WBC Urine 0-5 /HPF (0-5)
== END 2022-09-08 10:54 | disposition home or self-care (01) ==
LOC: HO.LAB 10:53
PROVIDERS: Visit Provider Urology
DX: N45.2 Orchitis (principal)
CPT/HCPCS: 81001; 87086

== ENCOUNTER → 2022-11-18 13:44 | Outpatient (BNVA) | payer OTHER, MEDICAID, SELFPAY | PROVIDERS: PCP Internal Medicine; Referring Provider Internal Medicine; Visit Provider Internal Medicine Cardiovascular Disease | DX: I50.22 Chronic systolic (congestive) heart failure (principal); I48.0 Paroxysmal atrial fibrillation; Z79.01 Long term (current) use of anticoagulants; Z79.899 Other long term (current) drug therapy | CPT/HCPCS: 93005; 99212 ==

== ENCOUNTER → 2022-11-28 15:07 | Outpatient (BNVA) | payer OTHER, MEDICAID, SELFPAY | PROVIDERS: PCP Internal Medicine; Visit Provider Urology | DX: N40.1 Benign prostatic hyperplasia with lower urinary tract symptoms (principal); N43.3 Hydrocele, unspecified; Z79.899 Other long term (current) drug therapy; N13.8 Other obstructive and reflux uropathy | CPT/HCPCS: 51798; 99212 ==

== ENCOUNTER → 2022-12-30 13:03 | Outpatient (BNVA) | payer OTHER, MEDICAID, SELFPAY | PROVIDERS: PCP Internal Medicine; Visit Provider Nurse Practitioner Family | DX: H53.8 Other visual disturbances (principal); H53.9 Unspecified visual disturbance | CPT/HCPCS: 99202 ==

== ENCOUNTER 2023-04-22 12:17 | Outpatient (AMB) | payer OTHER, MEDICAID, SELFPAY ==
--- NOTE | 2023-04-22 12:22 | A.OFFPC_ITS ---
Vital Signs 04/22/23 12:23 Height 5 ft 5 in Weight 228 lb BMI 37.9 BP 110/64 Blood Pressure Location Lt brachial Position Sitting Intake Visit Reasons: dm,lbp,chf Intake Note: Patient here for a follow up DM, BP, CHF Radiologic Technician Required: No Accompanied by: Spouse Allergies fluticasone [From Flonase] Allergy (Intermediate, Verified 04/22/23 12:52) Inadequate response linagliptin [Tradjenta] Allergy (Intermediate, Verified 04/22/23 12:52) anaphylaxis oxycodone Allergy (Intermediate, Verified 04/22/23 12:52) itch/irritation warfarin [Coumadin] Allergy (Intermediate, Verified 04/22/23 12:52) hemarthrosis ipartropium bromide nasal spra Allergy (Intermediate, Uncoded 04/22/23 12:52) allergic conjunctivitis Medication List - Last Reconciled 04/22/23 by Pushpa Arshad MD alcohol swabs 1 pad topical .once a day 100 days alprazolam 0.25 mg orally 1 tab 30 minutes prior to MRI, may repeat x's 1; 1 day betamethasone dipropionate 0.05% 1 appl topical DAILY PRN 2 weeks blood sugar diagnostic Use 1 test strip once a day blood-glucose meter ([x+1] Ultra2 Meter) As directed colchicine 0.6 mg PO BID PRN [diabetic shoe inserts As directed] [diabetic shoes As directed] fluticasone propionate 50 mcg/actuation 1 spray intranasal DAILY 30 days furosemide 80 mg (2 x 40 mg) PO DAILY 90 days lancets As directed lancets (OneTouch UltraSoft Lancets) Use 1 lancet once a day metformin ER 500 mg PO BID 90 days metoprolol tartrate 100 mg PO BID potassium chloride ER 10 mEq PO DAILY 90 days rivaroxaban (Xarelto) 20 mg PO DAILY sitagliptin phosphate (Januvia) 50 mg PO DAILY terazosin 10 mg PO DAILY tramadol 50 mg PO BID PRN 10 days Ventolin HFA 90 mcg/actuation (albuterol sulfate) 1 inh inhalation QID PRN 30 days NS Tobacco use date assessed: 12/09/22 Fall risk assessment: No Falls in past year Last assessed Fall Risk: 04/22/23 Dental Screening Dental Screen Date: 04/22/23 Did you have a dental visit in the last 12 months?: Yes Did you have a dental problem in the last 6 months where you did not have access to dental care?: No Was dental information given to patient?: Patient has dentist HPI HPI Comments History of Present Illness Details This is an 88-year-old male with diabetes mellitus type 2, atrial fibrillation, congestive heart failure and mild recurrent major depression that comes today accompanied by for follow-up on his conditions. A1c within goal. Lipid panel will be ordered. Has not gain 5 lb in a week and atrial fibrillation and congestive heart failure are follow by cardiology. On chronic anticoagulation and denies any active bleeding. Depression has been in remission with no need for medications. Walks with a cane for gait stability. 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 Mother No problems noted. Father Medical history unknown Mother No problems noted. Brother Asthma Sister Leukemia Diabetes Social History Housing: Apartment Alcohol intake: never Patient Tobacco Use Status: Never used Tobacco e-Cigarette/Vaping Use: Never Used Second Hand Smoke Exposure: No service: No Current occupational status: retired Cognitive needs: Yes Hearing needs: No Vision needs: Yes Questionnaire Thrive Questionnaire Date Thrive assessed: 12/09/22 SHARON-7 AMB Questionnaire SHARON-7 Date SHARON - 7 assessed: 12/09/22 Source: Developed by Drs. Twan Oneal, Brandy Reinoso, Sim Fried and colleagues, with an educational krysta from [employer] Review of Systems Const All systems reviewed & are unremarkable except as noted in HPI and below Eyes Reports no additional complaints, Denies change in vision and Denies other visua l disturbances Card Denies chest pain at rest, Denies chest pain with activity, Denies edema, Denies irregular heart rhythm, Denies claudication, Denies dyspnea, Denies dyspnea on exertion, Denies orthopnea, Denies paroxysmal nocturnal dyspnea and Denies slow heart rate Resp Denies cough, Denies dyspnea and Denies dyspnea on exertion GI Denies abdominal pain, Denies change in bowel habits, Denies excessive flatus, Denies nausea and Denies vomiting Denies urinary hesitancy, Denies urinary incontinence and Denies urinary urgency Musc Denies abnormal gait, Denies atrophy, Denies deformity and Denies limited range of motion Skin/Breast Denies bleeding lesions, Denies changing lesions and Denies rash Neuro Denies abnormal gait and Denies lack of coordination Physical exam (Primary Care) Vital Signs: Last Vital Signs BP 110/64 04/22/23 12:23 BMI result Body Mass Index 37.9 Tobacco/Smoking Status: Tobacco use Status Tobacco use date assessed 12/09/22 04/22/23 12:37 Patient Tobacco Use Status Never used Tobacco 04/22/23 12:37 Tobacco use type 06/21/22 12:47 e-Cigarette/Vaping Use Never Used 04/22/23 12:37 Thrive Assessment: Date of Thrive Assessment Date Thrive assessed 12/09/22 04/22/23 12:37 Const Limitations: ambulation with cane Eyes General: appearance normal, both eyes and all related structures Eyelids: Yes eyelids normal Conjunctivae: conjunctivae normal Neck Neck: Yes normal visual inspection and Yes supple Resp Effort & Inspection: normal respiratory effort Auscultation: clear to auscultation bilaterally Cardio Jugular venous distension: no JVD Rate: regular rate Rhythm: regular rhythm Heart sounds: S1 normal heart sound present and S2 normal heart sound present Extrem General: Yes full ROM Results AMB Hemoglobin A1c AMB Hemoglobin A1c 6.0 % Last Edit by LUZ Mclean on 04/22/23 12:5 0 Results Reviewed Results Reviewed: Laboratory Last Values Hgb A1c (Clinic) 6.0 % (4.0-6.0) 04/22/23 12:22 Assessment and Plan Assessment & Plan (1) Mild recurrent major depression: Code(s): F33.0 - Major depressive disorder, recurrent, mild Plan: In remission (2) Diabetes mellitus: Code(s): E11.9 - Type 2 diabetes mellitus without complications Qualifiers: Diabetes mellitus type: type 2 Diabetes mellitus correction insulin use: without hogshead head matcher use Diabetes mellitus complication status: with ophthalmic complications Diabetes mellitus complication detail: with diabetic retinopathy Diabetic retinopathy severity: with proliferative retinopathy Proliferative retinopathy type: stable Laterality: bilateral Qualified Code(s): E11.3553 - 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 A1c goal is equal or less than 7%. (3) CHF (congestive heart failure): Code(s): I50.9 - Heart failure, unspecified Qualifiers: Heart failure type: systolic Heart failure chronicity: chronic Qualified Code(s): I50.22 - Chronic systolic (congestive) heart failure Plan: Use diuretics as needed. The goal is to not gain 5 lb in a week. Follow-up with Cardiology. (4) Atrial fibrillation: Code(s): I48.91 - Unspecified atrial fibrillation Qualifiers: Atrial fibrillation type: paroxysmal Qualified Code(s): I48.0 - Paroxysmal atrial fibrillation Plan: Continue metoprolol and chronic anticoagulation. The goal is heart rate control. Follow-up with Cardiology. Orders: Orders Vitamin B12 and Folate Today E53.8 - Deficiency of other specified B group vitamins Comprehensive [place]. Panel Fast Today I50.22 - Chronic systolic (congestive) heart failure Lipid Panel Today E78.5 - Hyperlipidemia, unspecified NT-proBNP Today I50.22 - Chronic systolic (congestive) heart failure Vitamin D 25-OH Total Today E55.9 - Vitamin D deficiency, unspecified Microalbumin, Random (w Creat) Today E11.9 - Type 2 diabetes mellitus without complications Complete Blood Count Auto Diff Today D64.9 - Anemia, unspecified AMB Hemoglobin A1c Today E11.9 - Type 2 diabetes mellitus without complications Medications: Refilled colchicine 0.6 mg PO BID PRN 60 caps 4RF pain Coding Level of Care Code Est Pt Level 4 (26234) Diagnoses Mild recurrent major depression F33.0 Diabetes mellitus E11.355 Diabetes mellitus type: type 2 Diabetes mellitus hogshead head matcher insulin use: without hogshead head matcher use Diabetes mellitus complication status: with ophthalmic complications Diabetes mellitus complication detail: with diabetic retinopathy Diabetic retinopathy severity: with proliferative retinopathy Proliferative retinopathy type: stable Laterality: bilateral CHF (congestive heart failure) I50.22 Heart failure type: systolic Heart failure chronicity: chronic Atrial fibrillation I48.0 Atrial fibrillation type: paroxysmal Time Spent (min) 23
[2023-04-22 12:23] VITALS: BP 110/64; BMI 37.9
== END 2023-04-22 13:07 | disposition home or self-care (01) ==
PROVIDERS: Visit Provider Internal Medicine
DX: E11.9 Type 2 diabetes mellitus without complications (principal)
CPT/HCPCS: 83036; 99214

== ENCOUNTER 2023-05-07 11:42 | Outpatient (REF) | payer OTHER, MEDICAID, SELFPAY ==
[2023-05-07 12:04] LABS: MANUAL DIFF FLAG NO
[2023-05-07 13:59] LABS: Basophils Absolute Auto 0.1 X10*3/uL (0.0-0.2); Basophils Percent Auto 0.9 % (0-2); Eosinophils Absolute Auto 0.5 X10*3/uL (0.0-0.4); Eosinophils Percent Auto 6.9 % (0-4); Hematocrit 43.9 % (42.0-52.0); Hemoglobin 14.1 g/dl (14.0-18.0); Imm Gran Abs Auto 0.02 X10*3/uL (0.00-0.03); Imm Gran Pct Auto 0.3 % (0.0-0.4); Lymphocytes Absolute Auto 2.6 X10*3/uL (1.2-4.9); Lymphocytes Percent Auto 38.7 % (20-40); Mean Corpuscular HGB Conc 32.1 g/dl (31.0-36.0); Mean Corpuscular Hemoglobin 30.1 pg (27.0-33.0); Mean Corpuscular Volume 93.6 fL (80.0-98.0); Mean Platelet Volume 12.4 fL (9.4-12.4); Monocytes Absolute Auto 0.5 X10*3/uL (0.1-1.2); Monocytes Percent Auto 7.4 % (2-11); Neutrophils Absolute Auto 3.1 x10*3/uL (2.0-8.3); Neutrophils Percent Auto 45.8 % (45-73); Platelet Count 145 X10*3/uL (160-400); Red Blood Count 4.69 X10*6/uL (4.60-5.80); Red Cell Distribution Width 13.2 % (11.0-16.0); White Blood Count 6.8 X10*3/uL (4.8-10.8)
[2023-05-07 14:40] LABS: Alanine Aminotransferase 15 U/L (0-40); Albumin Level 3.9 g/dL (3.5-5.0); Alkaline Phosphatase 84 U/L (39-117); Anion Gap 15 (12-20); Aspartate Amino Transferase 23 U/L (5-37); Bilirubin Total 1.6 mg/dL (0.0-1.0); Blood Urea Nitrogen 16 mg/dL (9-16); Calcium 9.4 mg/dL (8.4-10.2); Carbon Dioxide 28 mmol/L (22-29); Chloride 102 mmol/L (96-108); Cholesterol 107 mg/dL; Estimated Glomerular Filt Rate > 60; Glucose Fasting 98 mg/dL (60-99); HDL Cholesterol 36 mg/dL; LDL Cholesterol Calculated 57 mg/dl; Potassium 4.4 mmol/L (3.3-5.1); Sodium 141 mmol/L (135-145); Total Protein 7.3 g/dL (6.5-8.0); Triglycerides 72 mg/dL
[2023-05-07 14:42] LABS: Creatinine Urine 167.94 mg/dL
[2023-05-07 14:49] LABS: Vitamin D 25-OH Total 47.7 ng/mL (>30)
[2023-05-07 14:58] LABS: Folate 15.2 ng/mL (> or = 4.0); Vitamin B12 1042 pg/mL (200-900)
[2023-05-12 21:18] LABS: NT-proBNP 1010 pg/mL (<450)
== END 2023-05-07 11:43 | disposition home or self-care (01) ==
LOC: HO.LAB 11:42
PROVIDERS: PCP Internal Medicine; Visit Provider Internal Medicine
DX: E11.9 Type 2 diabetes mellitus without complications (principal); E55.9 Vitamin D deficiency, unspecified; D64.9 Anemia, unspecified; E78.5 Hyperlipidemia, unspecified; E53.8 Deficiency of other specified B group vitamins; I50.22 Chronic systolic (congestive) heart failure
CPT/HCPCS: 36415; 80053; 80061; 82043; 82306; 82607; 82746; 83880; 85025